=== PATIENT | female | born 1995 | race Two or more races ===

== ENCOUNTER 2021-02-22 22:14 | Inpatient (IN) | payer OTHER, SELFPAY ==
[~2021-02-22] VITALS: Ht 152.4 cm; Wt 83.5 kg
[2021-02-22] MEDS ORDERED: MORPHINE SULFATE 5 MG/ML VIAL IVP PRN (22:55)
[2021-02-22] MEDS ORDERED: MISOPROSTOL 25 MCG TAB VG PRN (22:55)
[2021-02-22] MEDS ORDERED: METHYLERGONOVINE 0.2 MG/ML AMP IM PRN (22:55)
[2021-02-22] MEDS ORDERED: ONDANSETRON 4 MG/2 ML VIAL IVP PRN (22:55)
[2021-02-22] MEDS: LACTATED RINGERS 1,000 ML IV SCH (23:33)
[2021-02-22 23:50] LABS: APPEARANCE,URINE SL CLOUDY (CLEAR); BILIRUBIN,URINE NEGATIVE (NEGATIVE); BLOOD, URINE NEGATIVE (NEGATIVE); COLOR,URINE YELLOW (YELLOW); LEUKOCYTE ESTERASE ,URINE TRACE (NEGATIVE); NITRITE, URINE NEGATIVE (NEGATIVE); UGLUCOSE NEGATIVE (NEGATIVE)
[2021-02-22 23:51] LABS: BASOPHILS % (AUTO) 0.2 % (0.0-2.0); EOSINOPHILS # (AUTO) 0.2 K/uL (0-0.4); EOSINOPHILS % (AUTO) 1.2 % (0.0-4.0); HEMATOCRIT 39.5 % (36-48); HEMOGLOBIN 13.2 g/dL (12.0-16.0); LYMPHOCYTES # (AUTO) 2.3 K/uL (2.5-16.5); LYMPHOCYTES % (AUTO) 16.7 % (20.5-51.1); MEAN CORPUSCULAR HEMOGLOBIN 29 pg (27-31); MEAN CORPUSCULAR HGB CONC 33 g/dL (33-37); MEAN CORPUSCULAR VOLUME 87.5 fL (80-94); NEUTROPHILS # (AUTO) 10.2 K/uL (1.8-7.7); NEUTROPHILS % (AUTO) 74.9 % (42.2-75.2); PLATELET COUNT (AUTO) 257 K/uL (140-450); RED BLOOD CELL COUNT(AUTO) 4.51 MIL/uL (4.20-5.40); RED CELL DISTRIBUTION WIDTH 13.5 % (11.6-13.7); WHITE BLOOD COUNT (AUTO) 13.7 K/uL (4.8-10.8)
[2021-02-23 00:04] LABS: RBC,URINE 0-5 /HPF (0-5)
[2021-02-23 00:05] LABS: CALCIUM OXALATE CRYSTALS,UR 0-5 /HPF (None Seen); WBC,URINE 20-60 /HPF (0-5)
[2021-02-23] MEDS ORDERED: FERR325E14 PO (00:17)
[2021-02-23] MEDS ORDERED: PNV91TAB8 PO (00:17)
[2021-02-23 00:19] VITALS: BP 116/74
[2021-02-23 00:26] LABS: ALBUMIN 2.9 g/dL (3.4-5.0); CARBON DIOXIDE 22.9 mmol/L (21-32); CREATININE 0.6 mg/dL (0.6-1.3); POTASSIUM 3.9 mmol/L (3.5-5.1); TOTAL BILIRUBIN 0.4 mg/dL (0.0-1.0)
[2021-02-23] MEDS ORDERED: MORPHINE SULFATE 10 MG/ML VIAL ONE (03:56)
[2021-02-23] MEDS ORDERED: OXYTOCIN 20 UNITS in LACTATED RINGERS 1,000 ML IV SCH (05:45)
[2021-02-23] MEDS ORDERED: OXYTOCIN 20 UNITS/LR PREMIX 1,000 ML IV ONE (06:14)
[2021-02-23] MEDS: LACTATED RINGERS 1,000 ML IV SCH ×3 (07:50→16:02)
[2021-02-23] MEDS ORDERED: ROPIVACAINE 0.2%/NS PREMIX 200 ML EPI ONE (11:27)
[2021-02-23] MEDS ORDERED: ROPIVACAINE 0.2%/NS PREMIX 100 ML EPI SCH (11:50)
[2021-02-23 19:25] VITALS: BP 106/73
[2021-02-23] MEDS ORDERED: IBUPROFEN 600 MG TAB PO PRN (23:15)
[2021-02-23] MEDS ORDERED: OXYTOCIN 10 UNITS/ML VIAL IM PRN (23:15)
[2021-02-23] MEDS ORDERED: SIMETHICONE 80 MG TAB.CHEW PO PRN (23:15)
[2021-02-23] MEDS ORDERED: METHYLERGONOVINE 0.2 MG TAB PO PRN (23:15)
[2021-02-23] MEDS ORDERED: IBUPROFEN 800 MG TAB PO PRN (23:15)
[2021-02-23] MEDS ORDERED: bisacodyL 5 MG TABEC PO PRN (23:15)
[2021-02-23] MEDS ORDERED: METHYLERGONOVINE 0.2 MG/ML AMP IM PRN (23:15)
[2021-02-23] MEDS ORDERED: MEASLES, MUMPS, AND RUBELLA 1 VIAL SQVAC ONE (23:15)
[2021-02-23] MEDS ORDERED: BENZOCAINE/MENTHOL 20%-0.5% 60 GM CAN TP PRN (23:15)
[2021-02-23] MEDS ORDERED: DOCUSATE SODIUM 100 MG GELCAP PO PRN (23:15)
--- NOTE | 2021-02-24 07:22 | NUR ---
PATIENT HAS BEEN SCREENED AND CATEGORIZED LOW NUTRITION RISK. PATIENT WILL BE SEEN WITHIN 7 DAYS OF ADMISSION. 03/02/21 ARI ANDRADE MS, RDN
[2021-02-24 08:25] LABS: HEMATOCRIT 35.7 % (36-48)
[2021-02-25] MEDS ORDERED: MEASLES, MUMPS, AND RUBELLA 1 VIAL SQVAC ONE (04:06)
== END 2021-02-25 23:00 | disposition home or self-care (01) | DRG 560 ==
LOC: MLD 22:14 → MFCC 02-24 03:10
PROVIDERS: ADMIT Obstetrics & Gynecology; ATTEND Obstetrics & Gynecology
PROC: 10E0XZZ Delivery of Products of Conception, External Approach (ICD-10-PCS; principal; 2021-02-23)
PROC: 0KQM0ZZ Repair Perineum Muscle, Open Approach (ICD-10-PCS; 2021-02-23)
PROC: 10907ZC Drainage of Amniotic Fluid, Therapeutic from Products of Conception, Via Natural or Artificial Opening (ICD-10-PCS; 2021-02-23)
PROC: 3E0R3BZ Introduction of Anesthetic Agent into Spinal Canal, Percutaneous Approach (ICD-10-PCS; 2021-02-23)
PROC: 00HU33Z Insertion of Infusion Device into Spinal Canal, Percutaneous Approach (ICD-10-PCS; 2021-02-23)
PROC: 3E0234Z Introduction of Serum, Toxoid and Vaccine into Muscle, Percutaneous Approach (ICD-10-PCS; 2021-02-25)
PROC: 3E0134Z Introduction of Serum, Toxoid and Vaccine into Subcutaneous Tissue, Percutaneous Approach (ICD-10-PCS; 2021-02-25)
DX: O70.1 Second degree perineal laceration during delivery (principal); R71.0 Precipitous drop in hematocrit; Z20.822 Contact with and (suspected) exposure to COVID-19; Z37.0 Single live birth; Z3A.39 39 weeks gestation of pregnancy; Z23 Encounter for immunization
CPT/HCPCS: 36415; 51702; 59409; 76815; 80053; 81001; 85018; 85025; 86592; 86886; 86900; 86901; 87086; 90707; 90715; J2270; J2405; J2590; J2795; J7120

== ENCOUNTER 2023-02-05 16:42 | Inpatient (IN) | payer OTHER ==
[~2023-02-05] VITALS: Ht 154.9 cm; Wt 89.4 kg
[~2023-02-05 16:42] MED LIST: FERR325E14 PO; PNV91TAB8 PO
[2023-02-05] MEDS ORDERED: LACTATED RINGERS 1,000 ML IV SCH (17:15)
[2023-02-05] MEDS ORDERED: CARBOPROST 250 MCG/ML AMP IM PRN (17:15)
[2023-02-05] MEDS ORDERED: METHYLERGONOVINE 0.2 MG/ML AMP IM PRN (17:15)
[2023-02-05] MEDS ORDERED: ONDANSETRON 4 MG/2 ML VIAL IVP PRN (17:30)
[2023-02-05] MEDS ORDERED: MORPHINE SULFATE 10 MG/ML VIAL IVP PRN (17:35)
[2023-02-05 17:42] LABS: BILIRUBIN,URINE 1+ (NEGATIVE); BLOOD, URINE NEGATIVE (NEGATIVE); LEUKOCYTE ESTERASE ,URINE 1+ (NEGATIVE); NITRITE, URINE NEGATIVE (NEGATIVE); UGLUCOSE NEGATIVE (NEGATIVE)
[2023-02-05 17:44] LABS: APPEARANCE,URINE SLIGHTLY HAZY (CLEAR)
[2023-02-05 17:44] LABS: BASOPHILS % (AUTO) 0.2 % (0.0-2.0); EOSINOPHILS # (AUTO) 0.1 K/uL (0-0.4); EOSINOPHILS % (AUTO) 0.7 % (0.0-4.0); HEMATOCRIT 36.4 % (36-48); HEMOGLOBIN 12.4 g/dL (12.0-16.0); LYMPHOCYTES # (AUTO) 1.8 K/uL (2.5-16.5); MEAN CORPUSCULAR HEMOGLOBIN 28 pg (27-31); MEAN CORPUSCULAR HGB CONC 34 g/dL (33-37); MEAN CORPUSCULAR VOLUME 82.3 fL (80-94); MONOCYTES # (AUTO) 0.6 K/uL (0.8-1.0); MONOCYTES % (AUTO) 5.2 % (1.7-9.3); NEUTROPHILS # (AUTO) 8.2 K/uL (1.8-7.7); NEUTROPHILS % (AUTO) 76.9 % (42.2-75.2); PLATELET COUNT (AUTO) 276 K/uL (140-450); RED BLOOD CELL COUNT(AUTO) 4.43 MIL/uL (4.20-5.40); RED CELL DISTRIBUTION WIDTH 14.1 % (11.6-13.7); WHITE BLOOD COUNT (AUTO) 10.6 K/uL (4.8-10.8)
[2023-02-05 17:45] LABS: COLOR,URINE AMBER (YELLOW)
[2023-02-05 17:57] LABS: PROTHROMBIN TIME 9.4 secs (10.8-13.4)
[2023-02-05 17:58] LABS: ALBUMIN 2.6 g/dL (3.4-5.0); ANION GAP 18.6 (8-16); CREATININE 0.7 mg/dL (0.6-1.3); POTASSIUM 3.6 mmol/L (3.5-5.1); TOTAL BILIRUBIN 0.5 mg/dL (0.0-1.0)
[2023-02-05 18:00] LABS: RBC,URINE 0-5 /HPF (0-5)
[2023-02-05] MEDS: LACTATED RINGERS 1,000 ML IV SCH (18:35)
[2023-02-05] MEDS ORDERED: MISOPROSTOL 25 MCG TAB VG PRN (18:40)
[2023-02-05] MEDS ORDERED: OXYTOCIN 20 UNITS in LACTATED RINGERS 1,000 ML IV SCH (20:45)
[2023-02-06] MEDS: LACTATED RINGERS 1,000 ML IV SCH ×3 (01:11→10:27)
[2023-02-06] MEDS ORDERED: AMPICILLIN 2,000 MG VIAL ONE (01:15)
[2023-02-06] MEDS ORDERED: AMPICILLIN 2,000 MG in NACL 0.9% 100 ML IV ONE (02:00)
[2023-02-06] MEDS ORDERED: AMPICILLIN 1,000 MG VIAL ONE ×2 (05:21→10:15)
[2023-02-06] MEDS ORDERED: AMPICILLIN 1,000 MG in NACL 0.9% 50 ML IV SCH (06:00)
[2023-02-06] MEDS ORDERED: OXYTOCIN 20 UNITS/LR PREMIX 1,000 ML IV ONE (07:47)
[2023-02-06] MEDS ORDERED: OXYTOCIN 20 UNITS in LACTATED RINGERS 1,000 ML IV SCH (07:55)
[2023-02-06] MEDS ORDERED: fentaNYL citrate 0.05 MG/ML VIAL ONE (08:28)
[2023-02-06] MEDS ORDERED: ROPIVACAINE 0.2%/NS PREMIX 200 ML EPI ONE (08:28)
[2023-02-06] MEDS ORDERED: IBUPROFEN 800 MG TAB PO PRN (15:10)
[2023-02-06] MEDS ORDERED: BENZOCAINE/MENTHOL 20%-0.5% 60 GM CAN TP PRN (15:10)
[2023-02-06] MEDS ORDERED: MEASLES, MUMPS, AND RUBELLA 1 VIAL SQVAC ONE (15:10)
[2023-02-06] MEDS ORDERED: METHYLERGONOVINE 0.2 MG TAB PO PRN (15:10)
[2023-02-06] MEDS ORDERED: METHYLERGONOVINE 0.2 MG/ML AMP IM PRN (15:10)
[2023-02-06] MEDS ORDERED: OXYTOCIN 10 UNITS/ML VIAL IM PRN (15:10)
[2023-02-07 06:56] LABS: HEMATOCRIT 28.9 % (36-48); HEMOGLOBIN 9.9 g/dL (12.0-16.0)
--- NOTE | 2023-02-07 08:54 | NUR ---
PATIENT HAS BEEN SCREENED AND CATEGORIZED LOW NUTRITION RISK. PATIENT WILL BE SEEN WITHIN 7 DAYS OF ADMISSION. 02/05/23-02/12/[address]
[2023-02-08] MEDS ORDERED: bisacodyL 5 MG TABEC PO PRN (04:00)
[2023-02-08] MEDS ORDERED: bisacodyL 10 MG SUPP RC ONE (04:05)
[2023-02-08] MEDS ORDERED: bisacodyL 5 MG TABEC ONE (04:06)
== END 2023-02-08 10:47 | disposition home or self-care (01) | DRG 560 ==
LOC: MLD 16:42 → MFCC 02-06 18:35
PROVIDERS: ADMIT Obstetrics & Gynecology; ATTEND Obstetrics & Gynecology
PROC: 10E0XZZ Delivery of Products of Conception, External Approach (ICD-10-PCS; principal; 2023-02-06)
PROC: 0HQ9XZZ Repair Perineum Skin, External Approach (ICD-10-PCS; 2023-02-06)
PROC: 3E0R3BZ Introduction of Anesthetic Agent into Spinal Canal, Percutaneous Approach (ICD-10-PCS; 2023-02-06)
PROC: 00HU33Z Insertion of Infusion Device into Spinal Canal, Percutaneous Approach (ICD-10-PCS; 2023-02-06)
DX: O24.429 Gestational diabetes mellitus in childbirth, unspecified control (principal); Z37.0 Single live birth; O70.0 First degree perineal laceration during delivery; Z3A.38 38 weeks gestation of pregnancy; Z20.822 Contact with and (suspected) exposure to COVID-19
CPT/HCPCS: 36415; 51702; 59200; 59409; 76815; 80053; 81001; 85018; 85025; 85610; 85730; 86592; 86886; 86900; 86901; 87086; J0290; J2590; J2795; J3010; J7120; Q0092